=== PATIENT | female | born 1965 | race Caucasian/White ===

== ENCOUNTER 2023-12-20 08:31 | Emergency (ER) | payer BC, SELFPAY ==
--- NOTE | 2023-12-20 08:34 | XR_ITS ---
FINAL REPORT CLINICAL HISTORY: Right foot pain COMPARISON: None FINDINGS: RIGHT FOOT: Three views of the right foot were obtained. There is no acute fracture or dislocation. There is mild degenerative change. Calcaneal spurs are noted. There is no soft tissue abnormality. IMPRESSION: Mild degenerative change without acute bony abnormality. Calcaneal spurs. Reviewed, Interpreted and Dictated by Thanh Snowden III, MD Transcribed by Christine Spears Authenticated and . [facility]
[2023-12-20 08:45] VITALS: BP 144/63; PULSE 59; RESP 22; TEMP 36.6; O2SAT 98; BMI 36.3
--- NOTE | 2023-12-20 09:12 | EXP.UTC ---
Discharge Plan Referrals Follow up/Referrals: Provider,Referral, [Primary Care Provider] - See instructions Latisha Payne DPM [Staff Physician] - See instructions Activity Restrictions/Add. Instructions Additional Instructions/Restrictions: *weight bearing as tolerated *RICE, Rest the extremity, Ice 15-20 minutes 3-4 times daily, Compress- wear the colin wrap as discussed as much as possible to help reduce swelling and pain, Elevate the extremity when at rest *Colin wrap is for support and help control swelling, use it except in the shower. Be sure that is not to tight but not to loose either* Elevate when resting Clinical Impressions Clinical Impression: Foot pain Instructions Patient Instructions: DI for Foot Pain, Acetaminophen (Alternative Therapy), Ibuprofen Discharge ED Provider: Jordyn Bahena [facility] General Stated complaint: R foot pain ao 09/06 Mode of Arrival: Ambulatory Source of Information: Patient Limitations: No Limitations Time Seen by Provider: 12/20/23 09:13 Description of Symptoms (Recalled from Triage Doc. by RN): PATIENT C/O RIGHT FOOT PAIN. SHE STATES SHE DROPPED SOMETHING ON IT A FEW MONTHS AGO AND IT DID GET BETTER AFTER THAT, BUT STARTED HURTING AGAIN. SHE STATES PAIN IS WORSE AFTER SHE'S BEEN UP ON IT FOR A WHILE HEENT Symptoms (Recalled from RN notes): No Resp Symptoms (Recalled from RN notes): No Skin Symptoms (Recalled from RN notes): No MS Symptoms (Recalled from RN notes): Yes Functional Status (Recalled from RN notes): WNL History of Present Illness Provider Complaint: Patient states that in Aug sometime she dropped something on the top of her right foot and it got better but has been bothering her at times and today it was hurting again and hurt when she would try to walk on it so she came in Denies any new injury Related Data Allergies Allergy/AdvReac Type Severity Reaction Status Date / Time No Known Allergies Allergy Verified 04/12/19 23:04 Worker's Comp Is this a Worker's Comp case?: No [facility] Disclaimer: The information contained in this section may have been updated after the patient was seen, as this information can be updated by other users. Surgical History (Updated 12/20/23 @ 08:58 by Rosalinda Landa RN) History of cholecystectomy Social History Smoking Status: Unknown if ever smoked alcohol intake: never current occupational status: employed Travel in the last 8 weeks: None housing: house ROS Obtained: Yes All systems reviewed & no additional complaints except as documented and Yes Systems reviewed as appropriate & no additional complaints except as documented Constitutional Constitutional: Reports system reviewed and no additional complaints, except as documented and Reports as per HPI ENT Ears, Nose, Mouth, and Throat: Reports system reviewed and no additional complaints, except as documented and Reports as per HPI Cardiovascular Cardiovascular: Reports system reviewed and no additional complaints, except as documented and Reports as per HPI Respiratory Respiratory: Reports system reviewed and no additional complaints, except as documented and Reports as per HPI Musculoskeletal Musculoskeletal: Reports system reviewed and no additional complaints, except as documented and Reports as per HPI Comments: pain in top of right foot since dropping something on it in Dec on and off Physical Exam General General appearance: alert and in no apparent distress Respiratory Respiratory exam: Present normal lung sounds bilaterally; Absent respiratory distress or wheezes Cardiovascular Cardiovascular exam: Present regular rate, normal rhythm and normal heart sounds Expanded Lower Extremity Exam Right: Top foot image: 1. pain in top of foot no bruising no swelling no mchugh Neurological Exam Neurological exam: Present alert, oriented X3 and normal gait Medical Decision Making Judd Inquiry Pt receiving controlled substance: No Judd was queried for this patient: No Vital Signs: 12/20/23 08:45 Temperature 97.8 F Temperature Source Oral Pulse Rate [Left Brachial] 59 L Respiratory Rate 22 Blood Pressure [Left Arm] 144/63 H Blood Pressure Mean [Left Arm] 90 Blood Pressure Source [Left Arm] Automatic Cuff Blood Pressure Position [Left Arm] Sitting 02 Sat by Pulse Oximetry 98 Oxygen Delivery Method Room Air Orders (Tests/Meds): ORDERS Category Date Time Status XR foot RT min 3V Stat Exams 12/20/23 08:34 Taken Radiology Data #1: Image(s): Foot/Toes Image Reviewed: Yes I have reviewed radiologist's interpretation IMPRESSION: Mild degenerative change without acute bony abnormality. Calcaneal spurs.
[2023-12-20 09:50] VITALS: BP 144/63; PULSE 59; RESP 22; TEMP 36.6; O2SAT 98
== END 2023-12-20 09:53 | disposition home or self-care (01) ==
LOC: UTC 08:35
PROVIDERS: Emergency Provider Nurse Practitioner
DX: M79.671 Pain in right foot (principal)
CPT/HCPCS: 73630; 99204; 99212; G0463

== ENCOUNTER 2024-03-27 14:25 | Emergency (ER) | payer BC, SELFPAY ==
[2024-03-27 14:35] VITALS: BP 132/75; PULSE 53; RESP 21; TEMP 36.8; O2SAT 99; BMI 32.8
--- NOTE | 2024-03-27 14:42 | XR_ITS ---
FINAL REPORT CLINICAL HISTORY: fall, lac to 5th lateral mcp joint FINDINGS: Right hand Three views were obtained. There is no acute fracture or dislocation. The joint spaces appear normal. No soft tissue abnormality is identified. IMPRESSION: No acute process. Reviewed, Interpreted and Dictated by Thanh Snowden III, MD Transcribed by Arlyn Marcial Authenticated and [facility]
--- NOTE | 2024-03-27 14:44 | EXP.UTC ---
Discharge Plan Disposition Patient Disposition: Home, Self-Care Condition: Good Prescriptions Prescriptions: New amoxicillin-pot clavulanate 500-125 mg Tablet 1 tab PO Q12H 7 Days Qty: 14 0RF Referrals Follow up/Referrals: Provider,Referral, [Primary Care Provider] - See instructions Activity Restrictions/Add. Instructions Additional Instructions/Restrictions: Suture instructions: ?You have required stitches today. Please read the following instructions so you know how to care for them: ?1. Keep wound area dry for the first 24 hours. 2?? May clean gently with mild soap and water, after 48 hours to prevent crusting over suture knots. 3. You may shower if your provider gives permission but do not take a bath until the skin is healed.. 4. Never leave a wet dressing or Band-Aid on your stitches as this allows bacteria to reach the area and may cause infection. Band-aids can cause the wound to sweat and not recommended to wear for long periods of time Watch for signs of infection: ? Increasing redness, tenderness or warmth around the suture site ? Unusual swelling around the site ? Appearance of pus around each suture or any red streaks ? Fever If you develop any of the above signs or symptoms of infection, Follow up with Family Physician immediately 5. Suture removal in _7-10___days 6. Return to [facility] or follow up with family doctor for removal. This can be done by any medical provider dur?ing regular hours on Monday through Monday, by appointment. Clinical Impressions Clinical Impression: Laceration Instructions Patient Instructions: DI for Laceration Repair, DI for Laceration Repair -- Simple Discharge ED Provider: Jordyn Bahena [facility] HPI General Stated complaint: AO fall 03/27 @ 0540, right hand lac Mode of Arrival: Ambulatory Source of Information: Patient Limitations: No Limitations Time Seen by Provider: 03/27/24 14:44 Description of Symptoms (Recalled from Triage Doc. by RN): PATIENT C/O LACERATION TO RIGHT HAND AFTER FALLING IN THE DRIVEWAY THIS MORNING HEENT Symptoms (Recalled from RN notes): No Resp Symptoms (Recalled from RN notes): No Skin Symptoms (Recalled from RN notes): Yes MS Symptoms (Recalled from RN notes): No Functional Status (Recalled from RN notes): WNL History of Present Illness Provider Complaint: Patient states that she slipped and fell this morning in her driveway on the wet pavement causing laceration to the side of her right hand States that she thought it would be ok but continued to bother her throughout the day so she came in this evening States last tetanus 10yrs ago Related Data Previous Rx's Medication Instructions Recorded amoxicillin 500 mg-potassium 1 tab PO Q12H 7 days #14 tabs 03/27/24 clavulanate 125 mg tablet Allergies Allergy/AdvReac Type Severity Reaction Status Date / Time No Known Allergies Allergy Verified 04/12/19 23:04 Worker's Comp Is this a Worker's Comp case?: No [facility] Disclaimer: The information contained in this section may have been updated after the patient was seen, as this information can be updated by other users. Medical History (Updated 03/27/24 @ 14:49 by Jordyn Bahena APRN) Cholecystectomy planned Surgical History History of cholecystectomy Social History Smoking Status: Unknown if ever smoked alcohol intake: never current occupational status: employed Travel in the last 8 weeks: None housing: house ROS Obtained: Yes All systems reviewed & no additional complaints except as documented and Yes Systems reviewed as appropriate & no additional complaints except as documented Constitutional Constitutional: Reports system reviewed and no additional complaints, except as documented and Reports as per HPI ENT Ears, Nose, Mouth, and Throat: Reports system reviewed and no additional complaints, except as documented and Reports as per HPI Cardiovascular Cardiovascular: Reports system reviewed and no additional complaints, except as documented and Reports as per HPI Respiratory Respiratory: Reports system reviewed and no additional complaints, except as documented and Reports as per HPI Gastrointestinal Gastrointestingal: Reports system reviewed and no additional complaints, except as documented and as per HPI Musculoskeletal Musculoskeletal: Reports system reviewed and no additional complaints, except as documented and Reports as per HPI Integumentary/Breasts Skin/Breast: Reports system reviewed and no additional complaints, except as documented, Reports as per HPI and Reports other Comments: laceration to side of right hand Physical Exam General General appearance: alert and in no apparent distress ENT ENT exam: Present mucous membranes moist Respiratory Respiratory exam: Present normal lung sounds bilaterally; Absent respiratory distress or wheezes Cardiovascular Cardiovascular exam: Present regular rate, normal rhythm and normal heart sounds Expanded Upper Extremity Exam Right: Hand L/R front image: 1. abrasion Hand L/R back image: 1. v shaped laceration noted no active bleeding Neurological Exam Neurological exam: Present alert, oriented X3 and normal gait Medical Decision Making Judd Inquiry Pt receiving controlled substance: No Judd was queried for this patient: No Vital Signs: 03/27/24 14:35 Temperature 98.2 F Temperature Source Oral Pulse Rate [Left Brachial] 53 L Respiratory Rate 21 Blood Pressure [Left Arm] 132/75 Blood Pressure Mean [Left Arm] 94 Blood Pressure Source [Left Arm] Automatic Cuff Blood Pressure Position [Left Arm] Sitting 02 Sat by Pulse Oximetry 99 Oxygen Delivery Method Room Air Orders (Tests/Meds): ED MEDICATIONS Generic Name Dose Route Start Last Admin Trade Name Freq PRN Reason Stop Dose Admin Lidocaine HCl 2 ml 03/27/24 14:43 Lidocaine 1% Pf 2ml Ampule SQ 03/27/24 14:44 ONCE ONE Tetanus/Reduced Diphtheria/Acell Pertussis 0.5 ml 03/27/24 14:42 Tet/Diphth/Pert-Adult 0.5ml Syringe IM 03/27/24 14:43 .ONCE ONE ORDERS Category Date Time Status Hand XR right minimum 3 views [XR hand RT min 3V] Stat Exams 03/27/24 14:42 Ordered Radiology Data #1: Image(s): Hand no acute process Procedures Laceration Laceration 1: Site: hand Side (If applicable): right Size (cm): 2 Description: flap Depth: simple, single layer Local Anesthetic: lidocaine 1% Pre-repair: wound explored and irrigated extensively Skin layer closed with: nylon Size (cm): 4-0 Number of sutures: 5 Technique: simple, interrupted (wound edges approximated well)
[2024-03-27] MEDS: TET/DIPHTH/PERT-ADULT 0.5ML SYRINGE 0.5 ML IM (14:55)
[2024-03-27] MEDS: LIDOCAINE 1% PF 2ML AMPULE 2 ML SQ (14:55)
[2024-03-27 16:26] VITALS: BP 132/75; PULSE 53; RESP 21; TEMP 36.8; O2SAT 99
[2024-03-27] MEDS: NEOSPORIN OINTMENT 0.9GM UDP 1 EACH TP (16:30)
--- NOTE | 2024-03-27 16:30 | PC.NURSE ---
NEOSPORIN AND DRY NON-STICK DRESSING APPLIED TO INCISION AT THIS TIME
== END 2024-03-27 16:31 | disposition home or self-care (01) ==
PROVIDERS: Emergency Provider Nurse Practitioner
DX: S61.411A Laceration without foreign body of right hand, initial encounter (principal); W01.10XA Fall on same level from slipping, tripping and stumbling with subsequent striking against unspecified object, initial encounter; Z23 Encounter for immunization
CPT/HCPCS: 12001; 73130; 90471; 90715; 99213; 99214; G0463

== ENCOUNTER 2024-04-05 14:16 | Emergency (ER) | payer BC, SELFPAY ==
[2024-04-05 14:36] VITALS: BP 145/76; PULSE 76; RESP 16; TEMP 36.6; O2SAT 99; BMI 35.2
[2024-04-05 14:37] VITALS: BP 145/76; PULSE 76; RESP 16; TEMP 36.6; O2SAT 99
== END 2024-04-05 14:38 | disposition home or self-care (01) ==
LOC: UTC 14:18
PROVIDERS: Emergency Provider Nurse Practitioner; PCP Nurse Practitioner Family
DX: Z48.02 Encounter for removal of sutures (principal)